=== PATIENT | female | born 1975 | race Caucasian/White ===

== ENCOUNTER → 2016-09-02 | Day surgery (SDC) | payer OTHER ==
[~2016-09-02] VITALS: Ht 165.1 cm; Wt 84.8 kg
[~2016-09-02] MED LIST: HYDROCORTISO453.6 GM TOP; PREDNISOLO15 MG/5 M4 PO
--- NOTE | 2016-09-02 18:30 | Operative Report ---
Operative/Inv Procedure Report Surgery Date: 09/02/16 Name of Procedure: LEFT UVJ STONE ESWL. Pre-Operative Diagnosis: LEFT COLIC, FREQUENT UTI Post-Operative Diagnosis: SAME Estimated Blood Loss: none Surgeon/Awning Finisher: CARLOS PADILLA MD Anesthesia: moderate sedation Drains: NONE Specimens: NONE Complications: NONE Operative/Procedure Note Note: The patient was taken to the operating room and placed on the ESWL table in supine position. Time out was performed, with the patient awake, to confirm identity, procedure, laterality, and other pertinent ellyn-operative information. After adequate anesthesia, the patient was positioned so that the left flank was placed over the ESWL table cut-out, and overlying the dome of the shockwave generator. C-arm fluroscopy, as well as renal US was used to locate the stone, and evaluate the left kidney. The stone was visible on fluroloscopy at the distal-left ureter. Renal US confirmed mild hydronephrosis, with no additional stone seen in the left kidney. The left ureter stone was approximate 5 mm in size, and faintly visible with fluoroscopy. Using fluoroscopy, the position of the ureter stone was optimized for ESWL, using AP, and oblique views of the stone. Subsequently, E.S.W.L. was initiated at low power levels x 200 shocks. After noting the patient's tolerance to the shockwaves, the shock wave power level was quickly maximized. At the end of the procedure, the composition of the stone had changed significantly indicating the pulverization of the ureter stone. A total of 3000 shockwaves were delivered to the stone in order to achieve adequate lithotrypsy. The patient tolerated the procedures well, was awakened, and taken to recovery in satisfactory condition via stretcher. The pt will eventually be dischared to home with pain meds, diet orders, and intructions to catch fragments with straining the urine. The patient is to have follow-up renal ultrasound and KUB (after the left renal stone is treated as well). Discharge Disposition: PACU CC: CARLOS PADILLA MD
== END ==
LOC: STS 03:18
DX: N13.2 Hydronephrosis with renal and ureteral calculous obstruction (principal); Z87.440 Personal history of urinary (tract) infections
CPT/HCPCS: 81025; J2250

== ENCOUNTER 2017-01-11 18:36 | Emergency (ER) | payer OTHER ==
[2017-01-11 18:49] VITALS: BP 130/93
--- NOTE | 2017-01-11 19:29 | ED GENERAL ADULT ---
History of Present Illness General Chief Complaint: General Adult Stated Complaint: ?SYSTEMIC POISON AKOSUA Source: patient Exam Limitations: no limitations Vital Signs & Intake/Output Vital Signs & Intake/Output Vital Signs Date Time Temp Pulse Resp B/P B/P Pulse O2 O2 Flow FiO2 Mean Ox Delivery Rate 01/11 1849 97.5 102 15 130/93 96 Room Air Room Air Allergies Coded Allergies: morphine (Intermediate, SEVERE AND IMMEDIATE DIFFUSE HIVES 01/11/17) MDX - Latex (Latex) (UNKNOWN 01/11/17) Per antibiotic order sheet. -- Graham.Rodriguez 09/14/12 Uncoded Allergies: ADHESIVE TAPE (HIVES 09/14/12) Reconcile Medications Hydrocortisone 2.5 % OINT...G. 1 JOSHUA TOP TID PRN RASH apply to affected area(s) X 7 DAYS MAX Prednisolone 15 MG/5 ML SOLUTION 10 ML PO QDAY POISON AKOSUA Triage Note: PT TO ED FOR ?SYSTEMIC POISON AKOSUA. PT HAD SMALL RED RASH TO BODY THAT STARTED ON R ARM ON THURSDAY AND THE RASH HAS BEEN INTERMITTENTLY SPREADING IN AN ATYPICAL PATTERN. PT REPORTS +DIARRHEA/VOMITING THAT STARTED THURSDAY. PT SPOKE WITH [facility] WHO THINKS SHE HAS SYSTEMIC POISON AKOSUA. ALSO COMPLAINS OF CLOUDY MIND ALSO. Triage Nurses Notes Reviewed? yes Onset: Gradual Duration: day(s): Timing: recent history Injury Environment: home Severity: mild Modifying Factors: Improves With: rest. Associated Symptoms: pruritis : No Patient currently breastfeeds: No HPI: 41-year-old woman presents with punctate areas of erythema with pruritus. She states that several days ago she was working in the garden was believed that she was exposed to poison akosua. She states, "I think I have systemic poison akosua." She has no dyspnea facial rash or rash on her back. She notes mostly that he's punctate lesions are on her lower extremities and forearms. She has no fever chills nausea vomiting diarrhea chest pain. She is otherwise well and has no other concerns. Past History Travel History Traveled to [place] past 21 day No Medical History Any Pertinent Medical History? see below for history EENT: allergies Renal: CHOLILITHIASISI Surgical History Surgical History: none Psychosocial History What is your primary language Stateless Tobacco Use: Never used ETOH Use: denies use Illicit Drug Use: denies illicit drug use Family History Hx Contributory? No Review of Systems Review of Systems Constitutional: Reports: no symptoms. EENTM: Reports: no symptoms. Respiratory: Reports: no symptoms. Cardiovascular: Reports: no symptoms. GI: Reports: no symptoms. Genitourinary: Reports: no symptoms. Musculoskeletal: Reports: no symptoms. Skin: Reports: no symptoms. Neurological/Psychological: Reports: no symptoms. Hematologic/Endocrine: Reports: no symptoms. Immunologic/Allergic: Reports: no symptoms. All Other Systems: Reviewed and Negative Physical Exam Physical Exam General Appearance: well developed/nourished, mild distress Head: atraumatic, normal appearance Eyes: Bilateral: normal appearance. Ears, Nose, Throat: normal pharynx, normal ENT inspection Neck: normal inspection, supple, full range of motion Respiratory: normal breath sounds, chest non-tender, no respiratory distress, quiet respiration, lungs clear Cardiovascular: regular rate/rhythm Gastrointestinal: normal bowel sounds, soft, non-tender Back: normal inspection, normal range of motion Extremities: normal inspection, normal capillary refill, normal range of motion, no edema Neurologic/Psych: no motor/sensory deficits, awake, alert, oriented x 3 Skin: punctate areas, 5mm - 1cm area of erythema with pruritis, some with clear weeping. no tenderness to palpation. Core Measures ACS in differential dx? No CVA/TIA Diagnosis: No Severe Sepsis Present: No Septic Shock Present: No Progress Differential Diagnoses I considered the following diagnoses in my evaluation of the patient: contact dermatitis vs other. Plan of Care: pt to take hydrocortisone cream x 1 day... if not better, will start prednisolone. encouraged close follow up. Initial ED EKG: none Departure Departure Disposition: HOME OR SELF CARE Condition: Stable Clinical Impression Primary Impression: Contact dermatitis Referrals: COREY QUILES MD (PCP/Family) Departure Forms: Customer Survey General Discharge Information Prescriptions: Current Visit Scripts Prednisolone 10 ML PO QDAY #50 ML Hydrocortisone 1 JOSHUA TOP TID PRN RASH #30 GM apply to affected area(s) X 7 DAYS MAX Critical Care Note Critical Care Note Critical Care Time: non-applicable
[2017-01-11] MEDS ORDERED: PREDNISOLO15 MG/5 M4 PO (19:36)
[2017-01-11] MEDS ORDERED: HYDROCORTISO453.6 GM TOP (19:36)
== END 2017-01-11 19:48 ==
LOC: ERH 18:36
DX: L25.9 Unspecified contact dermatitis, unspecified cause (principal)